=== PATIENT | male | born 1985 | race Two or more races ===

== ENCOUNTER → 2021-06-25 | Outpatient (CLI) | payer OTHER | LOC: LAB 12:51 | DX: Z20.822 Contact with and (suspected) exposure to COVID-19 (principal) | CPT/HCPCS: U0002 ==

== ENCOUNTER → 2021-08-06 | Outpatient (CLI) | payer OTHER | LOC: LAB 09:47 | DX: Z20.822 Contact with and (suspected) exposure to COVID-19 (principal) | CPT/HCPCS: U0003 ==

== ENCOUNTER → 2021-09-30 | Outpatient (CLI) | payer OTHER | LOC: LAB 08:41 | DX: Z20.822 Contact with and (suspected) exposure to COVID-19 (principal) | CPT/HCPCS: U0003 ==